=== PATIENT | male | born 1940 | race Two or more races ===

== ENCOUNTER 2022-09-23 13:57 | Emergency (ER) | payer OTHER ==
[2022-09-23] MEDS ORDERED: Proparacaine 0.5% Opth 15 ML BOT ONE (15:35)
[2022-09-23] MEDS ORDERED: Fluorescein Opthalmic Strip ONE (15:35)
== END 2022-09-23 17:00 | disposition home or self-care (01) ==
LOC: ERS 13:57
DX: H10.9 Unspecified conjunctivitis (principal); T15.91XA Foreign body on external eye, part unspecified, right eye, initial encounter; I25.10 Atherosclerotic heart disease of native coronary artery without angina pectoris; I10 Essential (primary) hypertension
CPT/HCPCS: 99283